=== PATIENT | male | born 1975 | race African-American/Black ===

== ENCOUNTER 2022-11-09 18:45 | Emergency (ER) | payer SELFPAY ==
[2022-11-09] MEDS ORDERED: Cyclobenzaprine 10 MG TAB ONE (19:01)
[2022-11-09] MEDS ORDERED: Naproxen 500 MG TAB ONE (19:01)
== END 2022-11-09 19:15 | disposition home or self-care (01) ==
LOC: CSHERS 18:45
DX: M79.602 Pain in left arm (principal); I10 Essential (primary) hypertension; F17.210 Nicotine dependence, cigarettes, uncomplicated
CPT/HCPCS: 99283